=== PATIENT | male | born 1960 | race African-American/Black ===

== ENCOUNTER 2021-07-13 16:30 | Emergency (ER) | payer MEDICAID, OTHER ==
[~2021-07-13] VITALS: Ht 175.3 cm; Wt 88.0 kg
[~2021-07-13 16:30] MED LIST: ALLO100T PO; AMLO10TA4 PO; CETI10TA6 PO; CHOL100046 PO; COLC0.6T66 PO; CYCL5TAB PO; ERGO1250; FENO43CA8 PO; HYDR25TA MT; INDO-13 PO; METF-414 PO; METO-396 PO; MONT10TA32 MT; OMEP40CA20 PO; RA; VALS1TAB6 PO; albuterol sulfate
[2021-07-13 18:33] LABS: BASOPHILS % 0.8 % (0.0-2.0); EOSINOPHILS % 1.5 % (0.0-5.0); HEMATOCRIT. 46.1 % (42.0-52.0); HEMOGLOBIN. 15.8 g/dL (14.0-18.0); MEAN CORPUSCULAR HEMOGLOBIN 30.9 pg (28.0-32.0); MEAN CORPUSCULAR VOLUME 90.4 fL (80.0-94.0); MEAN PLATELET VOLUME 8.2 fl (7.4-10.4); MONOCYTES % 9.4 % (2.0-8.0); NEUTROPHILS % 52.3 % (40.0-76.0); PLATELET 207 x1000/uL (130-400)
[2021-07-13 18:37] LABS: CHLORIDE 101 mEq/L (98-107)
[2021-07-13] MEDS ORDERED: POTASSIUM CHLORIDE 20MEQ TABLET SR PO ONE (20:45)
[2021-07-14] MEDS ORDERED: KETOROLAC 30MG/ML VIAL IV ONE
[2021-07-14] MEDS ORDERED: MORPHINE SULFATE 4 MG/ML CPJ (NOT FOR IM USE) IV NR
[2021-07-14 00:40] LABS: CLARITY URINE CLEAR (CLEAR); COLOR URINE DARK YELLOW (YELLOW); KETONES URINE TRACE (NEGATIVE); LEUKOCYTE ESTERASE URINE NEGATIVE (NEGATIVE); NITRITE URINE NEGATIVE (NEGATIVE); OCCULT BLOOD URINE NEGATIVE (NEGATIVE); PROTEIN URINE TRACE (NEGATIVE); SPECIFIC GRAVITY URINE 1.027 (1.005-1.030)
[2021-07-14] MEDS ORDERED: ACET-2708 MT (01:05)
[2021-07-14] MEDS ORDERED: CYCL5TAB PO (01:06)
[2021-07-14 01:39] VITALS: BP 153/60
== END 2021-07-14 01:41 | disposition home or self-care (01) ==
LOC: ER 16:30
DX: R10.9 Unspecified abdominal pain (principal); F17.200 Nicotine dependence, unspecified, uncomplicated; I10 Essential (primary) hypertension; Z79.899 Other long term (current) drug therapy
CPT/HCPCS: 36415; 74176; 80053; 81003; 83690; 85025; 96374; 96375; 99284; 99406; J1885; J2270

== ENCOUNTER 2023-10-26 14:58 | Emergency (ER) | payer MEDICAID, OTHER ==
[~2023-10-26] VITALS: Ht 180.3 cm; Wt 98.0 kg
[~2023-10-26 14:58] MED LIST changes: +ACET-2708 MT; +MONT-39 MT; -MONT10TA32 MT
[2023-10-26 15:04] VITALS: BP 147/95; PULSE 78; RESP 16; O2SAT 97
[2023-10-26 17:47] VITALS: TEMP 98
[2023-10-26] MEDS: ACETAMINOPHEN 325MG TABLET PO NR (17:47)
== END 2023-10-26 17:51 | disposition home or self-care (01) ==
LOC: ER 14:58
DX: M54.9 Dorsalgia, unspecified (principal); I10 Essential (primary) hypertension; J45.909 Unspecified asthma, uncomplicated; Z53.21 Procedure and treatment not carried out due to patient leaving prior to being seen by health care provider; Z79.899 Other long term (current) drug therapy
CPT/HCPCS: 99282